=== PATIENT | female | born 1975 | race Caucasian/White ===

== ENCOUNTER 2019-12-24 09:38 | Emergency (ER) | payer SELFPAY ==
--- NOTE | 2019-12-24 10:33 | UC ---
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 Does have seasonal allergies - is taking something over the counter but not sure - History of Current Complaint Chief Complaint: UCGeneralIllness Stated Complaint: SWELLON GLANDS/SORE THROAT Time Seen by Provider: 12/24/19 10:32 Pain Intensity: 3 - Allergy/Home Medications Allergies/Adverse Reactions: Allergies Allergy/AdvReac Type Severity Reaction Status Date / Time No Known Allergies Allergy Verified 12/24/19 10:54 Home Medications: Home Medications Otc Allergy Medication 12/24/19 [History] PMH/Surg Hx/FS Hx/Imm Hx Previously Healthy: Yes - Surgical History Surgical History: Yes Surgery Procedure, Year, and Place: ovarian cysts. ear tubes. - Social History Alcohol Use: Occasionally Substance Use Type: None Smoking Status (MU): Heavy Every Day Tobacco Smoker Type: Cigarettes Amount Used/How Often: 1/2 PPD Review of Systems All Other Systems Reviewed And Are Negative: Yes ENT: Positive: Sore Throat Physical Exam Triage Information Reviewed: Yes Appearance: Well-Appearing, Other: - ZOOM Call - No acute distress Neurological: Positive: Alert Psychological Exam: Normal Course/Dx - Course Course Of Treatment: This is a 44 year old with swollen glands and scratchy throat Rapid strep: Negative Nontoxic appearing Plan Your strep test was negative. This appears to be either viral pharyngitis or seasonal allergy related Recommend starting antihistamine such as claritin or zyrtec Continue to monitor your symptoms at home If you develop fever and/or cough recommend follow up with PCP for further evaluation or return to urgent care - Diagnoses Provider Diagnosis: Pharyngitis Discharge ED - Sign-Out/Discharge Documenting (check all that apply): Patient Departure All imaging exams completed and their final reports reviewed: No Studies - Discharge Plan Condition: Fair Disposition: HOME Patient Education Materials: Pharyngitis (ED) Referrals: No Primary Care Phys,NOPCP [Primary Care Provider] - [facility] [place] [facility] REFERRAL [Outside] Additional Instructions: Your strep test was negative. This appears to be either viral pharyngitis or seasonal allergy related Recommend starting antihistamine such as claritin or zyrtec Continue to monitor your symptoms at home If you develop fever and/or cough recommend follow up with PCP for further evaluation or return to urgent care - Billing Disposition and Condition Condition: FAIR Disposition: Home
== END 2019-12-24 11:07 | disposition home or self-care (01) ==
LOC: UCCORT 09:38
DX: J02.9 Acute pharyngitis, unspecified (principal); R59.0 Localized enlarged lymph nodes; F17.210 Nicotine dependence, cigarettes, uncomplicated
CPT/HCPCS: 87651; 99201; G0463; Q3014